=== PATIENT | female | born 1965 | race African-American/Black ===

== ENCOUNTER 2017-10-30 16:00 | Inpatient (IN) | payer OTHER ==
[~2017-10-30] VITALS: Ht 157.5 cm; Wt 96.2 kg
[2017-10-30 17:14] LABS: EOSINOPHILS % 2.6 % (0.0-5.0); HEMATOCRIT. 40.8 % (36.0-48.0); HEMOGLOBIN. 13.6 g/dL (12.0-16.0); LYMPHOCYTES % 33.4 % (20.0-50.0); MEAN CORPUSCULAR HEMOGLOBIN 26.8 pg (28.0-32.0); MEAN CORPUSCULAR VOLUME 80.1 fL (81.0-99.0); MEAN PLATELET VOLUME 8.6 fl (7.4-10.4); MONOCYTES % 7.3 % (2.0-8.0); NEUTROPHILS % 55.7 % (40.0-76.0); PLATELET 364 x1000/uL (130-400); RED BLOOD CELL COUNT 5.09 mill/uL (4.2-5.4); RED CELL DISTRIBUTION WIDTH 13.8 % (11.6-14.6)
[2017-10-30 17:20] LABS: CHLORIDE 107 mEq/L (98-107)
[2017-10-30] MEDS ORDERED: ASPIRIN 325MG EC TABLET PO ONE (20:30)
[2017-10-30 22:45] VITALS: BP 151/78
[2017-10-30] MEDS ORDERED: ACETAMINOPHEN 325MG TABLET PO PRN (23:45)
[2017-10-31] MEDS: METOPROLOL TARTRATE 25MG TABLET PO SCH ×2 (00:33→14:37)
[2017-10-31 02:49] LABS: CREATINE KINASE 79 IU/L (26-192); CREATINE KINASE MB FRACTION 0.8 ng/mL (0.5-3.6)
[2017-10-31 04:34] VITALS: BP 123/66
[2017-10-31] MEDS: HYDROCODONE/ACETAMINOPHEN 5/325MG TABLET PO PRN ×2 (06:18→14:37)
[2017-10-31 07:17] VITALS: BP 132/67
[2017-10-31] MEDS ORDERED: PANTOPRAZOLE SODIUM 40 MG/VIAL IV SCH (09:00)
[2017-10-31] MEDS ORDERED: ENOXAPARIN 40MG/0.4ML SYR SUBCUT SCH (09:00)
[2017-10-31] MEDS ORDERED: ASPIRIN 81MG TABLET PO SCH (09:00)
[2017-10-31] MEDS ORDERED: REGADENOSON 0.4 MG/5 ML IV SCH (09:30)
[2017-10-31 10:30] LABS: BASOPHILS % 0.5 % (0.0-2.0); EOSINOPHILS % 3.4 % (0.0-5.0); HEMATOCRIT. 39.7 % (36.0-48.0); LYMPHOCYTES % 44.9 % (20.0-50.0); MEAN CORPUSCULAR HEMOGLOBIN 26.6 pg (28.0-32.0); MEAN CORPUSCULAR VOLUME 81.2 fL (81.0-99.0); MEAN PLATELET VOLUME 8.8 fl (7.4-10.4); MONOCYTES % 6.9 % (2.0-8.0); NEUTROPHILS % 44.3 % (40.0-76.0); PLATELET 345 x1000/uL (130-400); RED CELL DISTRIBUTION WIDTH 13.4 % (11.6-14.6)
[2017-10-31 10:59] LABS: CHLORIDE 108 mEq/L (98-107)
[2017-10-31 11:09] LABS: LDL CHOLESTEROL 83 mg/dL (5-100)
[2017-10-31 11:10] LABS: CREATINE KINASE 67 IU/L (26-192)
[2017-10-31 11:11] LABS: HDL CHOLESTEROL 49 mg/dL (40-59)
[2017-10-31 11:14] LABS: CREATINE KINASE MB FRACTION 0.9 ng/mL (0.5-3.6)
[2017-10-31 14:36] VITALS: BP 116/54
[2017-10-31] MEDS ORDERED: LORAZEPAM 2MG/ML CPJ IV NR (15:30)
[2017-10-31 17:23] VITALS: BP 116/54
== END 2017-10-31 19:35 | disposition home or self-care (01) | DRG 311 ==
LOC: ER 16:40 → 6WST 18:48 → EDBEDREQ 18:50 → ENRESERV 21:15
PROVIDERS: ADMIT Internal Medicine; ATTEND Internal Medicine
DX: I20.9 Angina pectoris, unspecified (principal); E03.9 Hypothyroidism, unspecified; E66.9 Obesity, unspecified; I10 Essential (primary) hypertension; K21.9 Gastro-esophageal reflux disease without esophagitis; R73.9 Hyperglycemia, unspecified; E05.20 Thyrotoxicosis with toxic multinodular goiter without thyrotoxic crisis or storm; R51 Headache; Z80.1 Family history of malignant neoplasm of trachea, bronchus and lung; Z82.49 Family history of ischemic heart disease and other diseases of the circulatory system; Z68.38 Body mass index [BMI] 38.0-38.9, adult
CPT/HCPCS: 36415; 70551; 71045; 78452; 80048; 80053; 80061; 82550; 82553; 83880; 84443; 84484; 85025; 85379; 85610; 93005; 93017; 93306; 99285; A9500; C9113; J1650